=== PATIENT | female | born 1950 | race Caucasian/White ===

== ENCOUNTER 2020-03-11 16:49 | Emergency (ER) | payer MEDICARE ==
[~2020-03-11] VITALS: Ht 167.6 cm; Wt 77.1 kg
[2020-03-11 17:46] LABS: HEMATOCRIT 37.8 % (37.0-47.0); MEAN CELL VOLUME 88.3 fl (81.0-99.0); MEAN CORPUSCULAR HGB 28.3 pg (27.0-31.0); MEAN PLATELET VOLUME 11.7 fl (9.6-12.3); PLATELET COUNT AUTOMATED 92 10*3/uL (130-400); RED BLOOD COUNT 4.28 10*6/uL (4.10-5.10); RED CELL DISTRI WIDTH 14.4 % (0-14.5); WHITE BLOOD COUNT 6.6 10*3/uL (4.8-10.8)
[2020-03-11 17:54] LABS: ACT PARTIAL THROMBO TIME 35.6 SECONDS (20.0-32.1); INTERNATIONAL NORM RATIO 1.1 (2.0-3.5)
[2020-03-11 18:02] LABS: ALBUMIN 3.3 gm/dl (3.1-4.5); ALKALINE PHOSPHATASE 91 U/L (45-117); BUN 18 mg/dl (7-24); CHLORIDE 108 mmol/L (98-107); LIPASE 41 U/L (73-393); POTASSIUM 3.3 mmol/L (3.5-5.1); SGOT/AST 20 IU/L (3-35); SGPT/ALT 42 U/L (12-78); SODIUM 139 mmol/L (136-145); TOTAL PROTEIN 6.6 gm/dL (6.4-8.2)
[2020-03-11 18:11] LABS: BASOPHILS 1 % (0-1); BURR CELLS FEW; TOTAL CELLS COUNTED 100 #CELLS
[2020-03-11 18:12] LABS: OVALOCYTES FEW; PLATELET SUFFICIENCY LOW (NORMAL)
[2020-03-11 19:38] LABS: CLARITY CLEAR (CLEAR); COLOR YELLOW (YELLOW); GLUCOSE NEGATIVE
[2020-03-11 19:39] LABS: BILIRUBIN NEGATIVE; BLOOD NEGATIVE (NEGATIVE); KETONE 2+; LEUKO ESTERASE NEGATIVE (NEGATIVE); NITRITE NEGATIVE (NEGATIVE); SPECIFIC GRAVITY > 1.030 (1.001-1.030)
[2020-03-11 19:43] LABS: BACTERIA 2+; EPITHELIAL CELLS 0-2; RBC 0-2 rbc/hpf (0-2); WBC 16-20 wbc/hpf (0-5)
[2020-03-11] MEDS ORDERED: DICYCLOMINE HCL10 MG PO (20:24)
[2020-03-11] MEDS ORDERED: KEFLEX500 M1 PO (20:24)
== END 2020-03-11 20:41 | disposition home or self-care (01) ==
LOC: ED 16:49
PROVIDERS: Physician Assistant
DX: N39.0 Urinary tract infection, site not specified (principal); R10.9 Unspecified abdominal pain